=== PATIENT | male | born 1995 | race Caucasian/White ===

== ENCOUNTER → 2020-11-30 | Outpatient (CLI) | payer OTHER ==
--- NOTE | 2020-12-01 10:10 | RAD ---
Exam performed: Ultrasound evaluation of the scalp. DATE OF SERVICE: 11/30/2020. COMPARISON: None available INDICATION: Increasing lump on the scalp for 3 to 4 years. Patient denies injury or pain. Findings : There is a well-defined round heterogeneously mass with areas of curvilinear echogenicity in the area of concern measuring 0.92 x 0.89 x 0.48 cm. There is suggestion of color flow on Doppler evaluation, although unclear if this is artifactual or really demonstrates vascularity. IMPRESSION: Solid 0.92 x 0.89 x 0.42 cm mass in the area of concern in the scalp is seen. The etiology of this is unclear. Evaluation with CT and may be obtained to evaluate if this is partially calcified. Surgical consultation is recommended. Electronically signed by: Margaret Mccloud MD (12/01/2020 10:08 AM) [id number]
== END ==
LOC: US 15:30 → EDBD 16:15
PROVIDERS: ATTEND Internal Medicine
DX: R22.0 Localized swelling, mass and lump, head (principal); L98.9 Disorder of the skin and subcutaneous tissue, unspecified
CPT/HCPCS: 76536